=== PATIENT | male | born 1990 | race Hispanic/Latino ===

== ENCOUNTER 2022-05-08 11:20 | Day surgery (SDC) | payer BC ==
[~2022-05-08 11:20] MED LIST: BUPIVACAINE/PF (0.25%) 2.5 MG/ML 10 ML VIAL INFILTRATI ONE; LACTATED RINGERS 1,000 ML IV SCH; NEOMY 3.5 MG/BACIT 400 UNITS/POLY B 5000 UNITS OINT 15 GM TP ONE
[2022-05-08] MEDS ORDERED: ceFAZolin/Water 2 GM/20 ML 2 GM/20 ML SYRINGE IV ONE (11:59)
[2022-05-08] MEDS ORDERED: ceFAZolin/STERILE WATER 2 GM/20 ML SYRINGE IV NR (12:00)
[2022-05-08] MEDS ORDERED: HYDROmorphone 0.5 MG/0.5 ML INJ IV PRN ×2 (12:08)
[2022-05-08] MEDS ORDERED: ACETAMINOPHEN 500 MG TAB PO ONE (12:08)
[2022-05-08] MEDS ORDERED: MAGNESIUM OXIDE 400 MG TAB PO ONE (12:08)
[2022-05-08] MEDS ORDERED: ONDANSETRON 4 MG/2 ML INJ IV PRN (12:08)
--- NOTE | 2022-05-08 12:10 | Anesthesia Day of Surgery ---
Anesthesia Day of Surgery - Day of Surgery Patient Examined: Yes Patient H&P Reviewed: Yes Patient is NPO: Yes
--- NOTE | 2022-05-08 12:10 | Anesthesia Consultation ---
Anesthesia Consult and Med Hx Date of service: 05/08/22 - Airway Anesthetic Teeth Evaluation: Caps ROM Head & Neck: Adequate Mental/Hyoid Distance: Adequate Mallampati Class: Class III Intubation Access Assessment: Probably Good - Pre-Operative Health Status ASA Pre-Surgery Classification: ASA1 Proposed Anesthetic Plan: General - Pulmonary Hx Smoking: No Hx Sleep Apnea: No - Central Nervous System Hx Psychiatric Problems: No - Gastrointestinal Hx Gastroesophageal Reflux Disease: No - Other Systems Hx Alcohol Use: Yes (Occas) Hx Cancer: No Hx Obesity: No
[2022-05-08] MEDS ORDERED: CELECOXIB 200 MG CAP PO NR (13:00)
[2022-05-08] MEDS ORDERED: GABAPENTIN 300 MG CAP PO NR (13:00)
[2022-05-08] MEDS ORDERED: MIDAZOLAM 2 MG/2 ML INJ IV NR (13:00)
--- NOTE | 2022-05-08 13:40 | Post Operative Note ---
Date of procedure: 05/08/22 Pre-op diagnosis: redundant forskin Post-op diagnosis: same Findings: as above Procedure: circ Anesthesia: GETA Surgeon: KELLY SHAH Estimated blood loss: minimal Pathology: list (foreskin) Specimen disposition: to lab Condition: stable Disposition: PACU
--- NOTE | 2022-05-08 13:42 | Discharge Summary ---
Short Stay Discharge Plan Activity: other (no sex no straining ) Weight Bearing Status: Full Weight Bearing Diet: regular Special Instructions: other (as above remove dressing tonight ) Follow up with: PRIMARY CARE, [Primary Care Provider] - 7 Days KELLY SHAH MD [Staff Physician] - 14 Days
[2022-05-08] MEDS ORDERED: ONDANSETRON 4 MG/2 ML INJ ONE (13:48)
[2022-05-08] MEDS ORDERED: LIDOCAINE MPF (2%) 20 MG/1 ML VIAL 5 ML ONE (13:48)
[2022-05-08] MEDS ORDERED: propofoL 200 MG/20 ML VIAL IV ONE (13:49)
[2022-05-08] MEDS ORDERED: fentaNYL 100 MCG/2 ML INJ ONE (13:49)
[2022-05-08] MEDS ORDERED: dexAMETHasone 20 MG/5 ML VIAL ONE (14:10)
[2022-05-08] MEDS ORDERED: KETOROLAC 30 MG/1 ML INJ ONE (14:21)
[2022-05-08] MEDS ORDERED: SODIUM CHLORIDE 0.9% IRR 1,500 ML BOTTLE IR ONE (14:27)
[2022-05-08 17:24] VITALS: BP 135/64
--- NOTE | 2022-05-08 19:00 | Post Anesthesia Evaluation ---
- Post Anesthesia Evaluation Patient Participated: Yes Airway Patent: Yes Stable Respiratory Function: Yes Nausea/Vomiting: No Temp > 96.8F: Yes Pain Manageable: Yes Adequeate Hydration: Yes Anesthesia Complications: No Block Receding Appropriately: Not Applicable Patient on Ventilator: No
--- NOTE | 2022-05-14 12:23 | Operative Report ---
DATE OF SURGERY: 05/08/2022 PREOPERATIVE DIAGNOSIS: Balanitis. POSTOPERATIVE DIAGNOSIS: Balanitis. PROCEDURE: Circumcision. SURGEON: Pastor Burris MD ANESTHESIA: General. FINDINGS: This is a gentleman who presented for circumcision. All risks and implications were discussed. DESCRIPTION OF PROCEDURE: The patient was brought to the operating room and placed on the operating table. Following induction of anesthesia, placed in the supine position, prepped and draped in the usual sterile fashion. The two skin incisions were marked out. The area was dissected and bisected dorsally. Large amount of excess skin was removed. Hemostasis was assured. Wound was irrigated. Any small vessels were cauterized or tied with 3-0 Vicryl. The reconstruction was done with sutures at 12, 3, 6, and 9 o'clock position. Each quadrant was sutured with 3-0 chromic. The patient tolerated the procedure well. No significant complication. Minimal blood loss. Brought to recovery in stable condition. TID: [id number] RECEIPT: [id number] SHI/NAVID/CHERYL
== END 2022-05-08 17:40 | disposition home or self-care (01) ==
LOC: OR 11:20
PROVIDERS: ATTEND Urology
DX: N48.1 Balanitis (principal); Z72.89 Other problems related to lifestyle; Z98.890 Other specified postprocedural states; Z79.899 Other long term (current) drug therapy
CPT/HCPCS: 54161; 88304; J0690; J1100; J1170; J1885; J2405; J2704; J3010; J7120; J3490